=== PATIENT | male | born 1970 | race African-American/Black ===

== ENCOUNTER 2018-02-07 08:20 | Emergency (ER) | payer OTHER ==
[~2018-02-07] VITALS: Ht 175.3 cm; Wt 118.2 kg
[~2018-02-07 08:20] MED LIST: ALBU8.5H3 IH; AMLO-511 PO; FLUT1DIS3 IH; OMEP10 PO
[2018-02-07] MEDS ORDERED: HYDR25TA PO (08:23)
[2018-02-07 08:49] VITALS: BP 160/99
[2018-02-07] MEDS ORDERED: PERTUSS(ACELL),DIPH,TET VAC/PF 0.5 ML VIAL IM ONE (09:00)
== END 2018-02-07 09:42 | disposition home or self-care (01) ==
LOC: EMS 08:21
DX: S00.12XA Contusion of left eyelid and periocular area, initial encounter (principal); S00.511A Abrasion of lip, initial encounter; S80.811A Abrasion, right lower leg, initial encounter; S80.812A Abrasion, left lower leg, initial encounter; I10 Essential (primary) hypertension; E11.9 Type 2 diabetes mellitus without complications; J45.909 Unspecified asthma, uncomplicated; F12.90 Cannabis use, unspecified, uncomplicated; W18.39XA Other fall on same level, initial encounter; Y93.89 Activity, other specified; Y92.89 Other specified places as the place of occurrence of the external cause; Y99.8 Other external cause status
CPT/HCPCS: 90471; 90715; 99283

== ENCOUNTER 2020-12-06 10:20 | Emergency (ER) | payer OTHER ==
[~2020-12-06] VITALS: Ht 175.3 cm; Wt 118.2 kg
[~2020-12-06 10:20] MED LIST changes: +AMLO-257 PO; -AMLO-511 PO; +HYDR25TA2 PO; -OMEP10 PO
[2020-12-06 11:45] VITALS: BP 128/77
== END 2020-12-06 11:55 | disposition home or self-care (01) ==
LOC: EMS 10:24
DX: M19.011 Primary osteoarthritis, right shoulder (principal); F12.90 Cannabis use, unspecified, uncomplicated; E11.9 Type 2 diabetes mellitus without complications; I10 Essential (primary) hypertension
CPT/HCPCS: 29105; 82962; 93005; 99283